=== PATIENT | female | born 1960 | race Caucasian/White ===

== ENCOUNTER 2021-03-09 12:30 | Emergency (ER) | payer OTHER, SELFPAY ==
[2021-03-09 13:47] VITALS: BP 133/77; PULSE 80; RESP 18; TEMP 36.9; O2SAT 100; BMI 25.7
--- NOTE | 2021-03-09 14:53 | ED_ITS ---
HPI - General Adult General Chief complaint: General Medical Stated complaint: body pain Time Seen by Provider: 03/09/21 14:23 Source: patient Mode of arrival: ambulatory History of Present Illness HPI narrative: 60-year-old female with a past medical history B12 deficiency, osteoporosis, anxiety, presenting to the ED complaining of diffuse body pain/myalgias and bone pain x years secondary to being noncompliant on all medications x a couple years. Reports went through a divorce, & lost her health insurance and has been unable to establish care with a PCP. Requesting refills of her vitamin B12 injection. Denies fever, chills Onset (ago): year(s) Related Data Previous Rx's Medication Instructions Recorded cyanocobalamin (vitamin B-12) 1,000 mcg PO DAILY #30 cap 03/09/21 Allergies Allergy/AdvReac Type Severity Reaction Status Date / Time No Known Allergies Allergy Verified 03/09/21 13:52 Review of Systems Review of Systems: Constitutional: No Fever, No Chills, No Fatigue, No Malaise Eyes: No Eye Pain, No Vision Changes Cardiovascular: No Chest Pain, No SOB Respiratory: No Cough, No Dyspnea Gastrointestinal: No Nausea, No Vomiting, No Abdominal pain Musculoskeletal: + joint pain, + Myalgias, No Joint Swelling Skin: No Skin Lesions, No rash Neuro: No Weakness, No Numbness, No Headache Yes all other systems are reviewed and are negative [facility] Past Medical History Attestation statement: The following information was validated with the patient. Medical History (Updated 03/09/21 @ 14:54 by FABIÁN Rey) Anxiety Low vitamin B12 level Osteoporosis Social History Social History Advance Directives: No Advance Directives Information Provided: No Patient : No Physical Exam Vital Signs: Vital Signs: Last Vital Signs Temp 98.4 F 03/09/21 13:47 Pulse 80 03/09/21 13:47 Resp 18 03/09/21 13:47 BP 133/77 03/09/21 13:47 Pulse Ox 100 03/09/21 13:47 Body Mass Index 25.7 Const: General: cooperative, healthy appearing, comfortable and no acute distress Orientation/consciousness: patient oriented x3 Limitations: no limitations HENMT: Head: Yes normal to inspection Ears: hearing grossly normal bilaterally General nose exam: Normal external nose present Face and sinus: Yes normal facial exam Eyes: General: appearance normal, both eyes and all related structures EOM: EOMs intact bilaterally Neck: Neck: Yes normal visual inspection and Yes no meningeal signs Resp: Effort & Inspection: normal respiratory effort Cardio: Rate: regular rate GI: Inspection: Yes normal to inspection Skin: Rashes: no rashes Wounds: no wounds Neuro: General: patient oriented x3, tone normal, moves all extremities and no meningeal signs Gait exam (Neuro): Normal gait present Extrem: General: Yes normal to inspection Medical Decision Making MDM Narrative Medical decision making narrative: 60-year-old female with a past medical history B12 deficiency, osteoporosis, anxiety, presenting to the ED complaining of diffuse body pain/myalgias and bone pain x years secondary to being noncompliant on all medications x a couple years. On exam vital signs stable, NAD, well-appearing. Discussed with patient cannot restart her on her vitamin B12 injections as initially they are once daily x7 days. I also discussed this with pharmacy, they did not recommend restarting the injections however did recommend initiating p.o. vitamin B12 until patient can establish care with a PCP/check her levels Discharge Plan Discharge Clinical Impression: Myalgia Patient Disposition: Home, Self-Care Instructions: Vitamin B-12 (Cyanocobalamin) (By mouth) Additional Instructions: You need to establish care with a primary care doctor as soon as possible Start taking vitamin B12 1000 mcg daily If her symptoms persist or worsen, become unbearable, fever, chills, falls please return to the ED Prescriptions: New cyanocobalamin (vitamin B-12) 1,000 mcg capsule 1,000 mcg PO DAILY Qty: 30 RF: 0 Referrals: Corrine Escalera NP [Nurse Practitioner] - 2 days Kevin Mitchell MD [Physician] - 2 days Sylvia / Elian NUNN MD [Physician] - 2 days Pratik Heaton PA-C [Physician Family Service Caseworker] - 2 days Interventions: ED Discharge Assessment Last Done: 03/09/21 15:02 Discharge Date/Time: 03/09/21 15:03
== END 2021-03-09 15:03 | disposition home or self-care (01) ==
PROVIDERS: Emergency Provider Emergency Medicine
DX: M79.10 Myalgia, unspecified site (principal)
CPT/HCPCS: 99283